=== PATIENT | female | born 1995 | race Caucasian/White ===

== ENCOUNTER 2017-11-30 16:03 | Emergency (ER) | payer OTHER ==
[~2017-11-30] VITALS: Ht 157.5 cm; Wt 46.9 kg
[2017-11-30 16:08] VITALS: TEMP 36.8; Ht 157.5 cm; Wt 46.9 kg
[2017-11-30] MEDS ORDERED: MUCINEX PO (16:50)
--- NOTE | 2017-11-30 16:51 | DIAGNOSTIC IMAGING REPORT ---
CHEST ONE VIEW PORTABLE CLINICAL HISTORY: Febrile, sore throat, emesis. COMPARISON STUDY: No previous studies for comparison. FINDINGS: Lung volumes are normal. Lungs are clear. No pneumothorax or pleural effusion is noted. Cardiomediastinal silhouette is unremarkable. Pulmonary vascularity is normal. IMPRESSION: No acute cardiopulmonary findings. Electronically signed by: Sanjiv Wong M.D. 11/30/2017 4:50 PM Dictated Date/Time: 11/30/2017 4:49 PM
[2017-11-30] MEDS ORDERED: AMOXICILLIN 500 MG CAP PO STA (17:15)
[2017-11-30] MEDS ORDERED: AMX500 PO (17:17)
[2017-11-30 17:18] VITALS: BP 93/62; PULSE 77; O2SAT 94
--- NOTE | 2017-11-30 17:18 | EMERGENCY ROOM VISIT NOTE ---
History First contact with patient: 16:11 Chief Complaint: FLU LIKE SX Stated Complaint: FEVER, SORE THROAT, NAUSEA History of Present Illness The patient is a 22 year old female who presents to the Emergency Room via private vehicle with complaints of "fever, sore throat, nausea". The patient states that 2 days ago she began with a sore throat, that followed then with a fever, cough, vomit 1. She also notes back pain had a hard time falling asleep last night. She rates the back pain throughout the diffuse muscles of the back is a 7/10 and throat is a 5/10. She denies any trouble swallowing but notes it is painful. She denies any history of blood clots, long travel, hormone use, abdominal pain. Review of Systems A complete 6-point Review of Systems was discussed with the patient, with pertinent positives and negatives listed in the History of Present Illness. All remaining Review of Systems questions can be considered negative unless otherwise specified. Past Medical/Surgical History Noncontributory. Family History Noncontributory. Social History Smoking Status: Never Smoker Patient is a [employer] student and lives locally. Current/Historical Medications Scheduled Amoxicillin (Amoxicillin), 500 MG PO TID Ondasetron Odt (Zofran Odt), 4 MG SL Q6H [Mucinex], 1 TAB PO PRN UD Physical Exam Vital Signs Date Time Temp Pulse Resp B/P (MAP) Pulse Ox O2 Delivery O2 Flow Rate FiO2 11/30/17 17:18 77 18 93/62 94 Room Air 11/30/17 16:08 36.8 98 18 110/78 98 Room Air Physical Exam VITAL SIGNS - Vital signs and nursing notes were reviewed. Stable. GENERAL -22-year-old female appearing her stated age who is in no acute distress. Communicates well with provider and answers questions appropriately. SKIN - Without rashes. No meningeal or petechial rash. HEAD - NC/AT. EYES - PERRL with EOMI bilaterally. Sclera anicteric. EARS - No deformities of external structures noted on gross examination bilaterally. External auditory canals without discharge or otorrhea. Tympanic membranes pearly smith without retraction or bulging. No fluid or purulent material visualized behind the TM. Handle of malleus, umbo, cone of light, pars tensa/flaccid all easily visualized. NOSE - Midline and without cyanosis. No epistaxis or purulent drainage noted. MOUTH/OROPHARYNX - Without perioral cyanosis. Buccal mucosa pink and moist and without leukoplakia. Tongue midline with equal elevation of palate bilaterally. Bilateral tonsillar minimal hypertrophy at 1+, with erythema and minimal exudate. No unilaterality or evidence of abscess. No soft palate involvement. Fair dentition noted. NECK - Neck with FROM. Supple to palpation. No lymphadenopathy noted. No nuchal rigidity. LUNGS - Chest wall symmetric without accessory muscle use, intercostals retractions, or central cyanosis. Normal vesicular breath sounds CTA B/L. No wheezes, rales, or rhonchi appreciated. CARDIAC - RRR with S1/S2. No murmur, rubs, or gallops appreciated. ABDOMEN - Abdominal contour normal without pulsations or visible masses. No tenderness, palpable masses, hepatosplenomegaly, or ascites noted. Medical Decision & Procedures ER Provider Diagnostic Interpretation: CHEST ONE VIEW PORTABLE CLINICAL HISTORY: Febrile, sore throat, emesis. COMPARISON STUDY: No previous studies for comparison. FINDINGS: Lung volumes are normal. Lungs are clear. No pneumothorax or pleural effusion is noted. Cardiomediastinal silhouette is unremarkable. Pulmonary vascularity is normal. IMPRESSION: No acute cardiopulmonary findings. Electronically signed by: Sanjiv Wong M.D. 11/30/2017 4:50 PM Dictated Date/Time: 11/30/2017 4:49 PM Laboratory Results Test 11/30/17 16:30 11/30/17 16:45 Influenza Type A Antigen Neg for Influ A (NEG) Influenza Type B Antigen Neg for Influ B (NEG) Urine Color YELLOW Urine Appearance CLEAR (CLEAR) Urine pH 6.5 (4.5-7.5) Urine Specific [place] 1.008 (1.000-1.030) Urine Protein NEG (NEG) Urine Glucose (UA) NEG (NEG) Urine Ketones NEG (NEG) Urine Occult Blood NEG (NEG) Urine Nitrite NEG (NEG) Urine Bilirubin NEG (NEG) Urine Urobilinogen NEG (NEG) Urine Leukocyte Esterase NEG (NEG) Urine Test NEG (NEG) Date/Time Source Procedure Growth Status 11/30/17 16:20 Throat Group A Streptococcus Screen - Final SPECIMEN POSITIVE FOR GROUP A BETA ST... Complete 11/30/17 16:20 Throat Group A Streptococcus Screen ([facility]) - Final Complete Medications Administered Medications (Trade) Dose Ordered Sig/Miguel Route Start Time Stop Time Status Last Admin Dose Admin Amoxicillin (Amoxil Cap) 500 mg NOW STAT PO 11/30/17 17:15 11/30/17 17:17 DC 11/30/17 17:31 500 MG Medical Decision Patient was seen and evaluated as above in room B6. Review was performed of nursing notes and vital signs. After obtaining a thorough history and physical examination the above work up was performed. She presents to us today with sore throat, body aches in the back region, and nausea. She is nontoxic on exam. She communicates well. I do not believe that at this time blood work needs to be initiated. I did start with a chest x-ray which was negative because of the emesis and her body aches. This was negative for pneumonia. Urine, UPT and flu negative. Rapid strep positive. She will be treated for strep throat with amoxicillin. She will be given Zofran for nausea. When she was re-vital the blood pressure did drop somewhat however I believe this is likely within normal range for her. At this time she is not dizzy, lightheaded and is again nontoxic in appearance. She is to follow with [facility] early next week for recheck or return here with worsening. She was educated upon worrisome symptoms which to return. The patient was educated upon management, had questions answered prior to discharge, and was discharged home in good condition. In the evaluation and treatment of this patient the following differential diagnoses were obtained: Streptococcal pharyngitis, viral pharyngitis, mononucleosis, among others. Impression Primary Impression: Acute streptococcal pharyngitis Departure Information Dispostion Home / Self-Care Condition GOOD Prescriptions Ondasetron Odt (ZOFRAN ODT) 4 Mg Tab 4 MG SL Q6H for Nausea, #6 TAB Prov: Russel Nicole PA-C 11/30/17 Amoxicillin (Amoxicillin) 500 Mg Cap 500 MG PO TID, #29 TABS Prov: Russel Nicole PA-C 11/30/17 Referrals [facility] (PCP) Patient Instructions My [facility] Additional Instructions You were seen in the emergency department for your sore throat and body aches. The results of your rapid strep screen were found to be POSITIVE. You were prescribed amoxicillin to be taken every 8 hours for 10 days. Your given the first dose here with the next dose being 8 hours from now with the remainder of the prescription for pickup at the pharmacy. This is an antibiotic. All antibiotics have the potential to cause diarrhea. Stop this medication and contact a medical provider if you were to develop any significant adverse side effects including: wheezing, shortness of breath, passing out, vomiting, or a diffuse rash. Always take antibiotics as directed and COMPLETE the ENTIRE course regardless of the improvement of your symptoms. Zofran 1 tablet every 6 hours as needed for nausea. For pain and fever control, you can use the following [id number] medicines (if >12 yo): - Regular strength (325mg/tab) Tylenol (acetaminophen) 1-2 tabs every 4-6 hours as needed. Do not exceed 12 tablets in a 24 hour period. Avoid taking more than 3 grams (3000 mg) of Tylenol per day. This includes any other sources of acetaminophen you may take on a regular basis. - Regular strength (200 mg/tab) Advil (ibuprofen) 1-2 tabs every 4-6 hours as needed. Do not exceed a dose of 3200 mg per day. - For best results, alternate dosing of Tylenol and Advil. In addition to your prescribed medications, you can also use the following home remedies: - Warm salt-water gargles 3 times per day can soothe your throat and help to fight infection. - Warm tea with honey can soothe your throat. Return to the emergency department if your symptoms persist or worsen over the next 2-3 days despite treatment course outlined above. Return to the emergency department if you develop the following symptoms of: inability to swallow solids , liquids, or drool; excessive wheezing or inability to catch your breath; or intractable fever or pain. Follow up with your primary care provider in 2-3 days from today's emergency department visit.
[2017-11-30] MEDS ORDERED: ONDA4TAB10 SL (17:24)
[2017-11-30 17:27] LABS: INFLUENZA B ANTIGEN Neg for Influ B (NEG)
== END 2017-11-30 17:36 | disposition home or self-care (01) ==
LOC: C.EDB 16:05
DX: J02.0 Streptococcal pharyngitis (principal)